=== PATIENT | male | born 1985 | race Asian ===

== ENCOUNTER 2020-01-23 18:03 | Emergency (ER) | payer MEDICAID ==
[~2020-01-23] VITALS: Ht 167.6 cm; Wt 7.7 kg
[2020-01-23] MEDS ORDERED: SULFAMETH/TRIMETH 800/160 MG TABLET PO ONE (18:45)
[2020-01-23] MEDS ORDERED: CEFTRIAXONE 1 G VIAL IM ONE (18:45)
[2020-01-23] MEDS ORDERED: SULFAMETH/TRIMETH 800/160 MG TABLET ONE (19:14)
[2020-01-23] MEDS ORDERED: CEFTRIAXONE 1 G VIAL ONE (19:14)
[2020-01-23] MEDS ORDERED: LIDOCAINE HCL 1% 20 ML VIAL ONE (19:14)
--- NOTE | 2020-01-23 19:38 | NUR ---
Patient discharged to home in stable conditon. Written and verbal after care instructions given. Patient verbalizes understanding of instructions. Walked out of ER with no distress noted.
[2020-01-23 19:39] VITALS: BP 122/85
== END 2020-01-23 19:40 | disposition home or self-care (01) ==
LOC: ER 18:03
DX: L02.01 Cutaneous abscess of face (principal)
CPT/HCPCS: 96372; 99283; J0696; J3490; A4663

== ENCOUNTER 2020-06-22 02:09 | Emergency (ER) | payer SELFPAY ==
[~2020-06-22] VITALS: Ht 167.6 cm; Wt 72.6 kg
--- NOTE | 2020-06-22 02:22 | NUR ---
PATIENT ARRIVED AT THE ER WITH C/O OF LLE PAIN/REDNESS/EDEMA SINCE YESTERDAY AM. PATIENT AAOX4. IN NO ACUTE DISTRESS. NO CARDIOPULMONARY CONCERN. NO /GI CONCERN.
--- NOTE | 2020-06-22 02:24 | NUR ---
Dr. Armenta at bedside for MSE.
[2020-06-22] MEDS ORDERED: MUPIROCIN 2% OINT 22 GM TUBE TP ONE (02:30)
[2020-06-22] MEDS ORDERED: SULFAMETH/TRIMETH 800/160 MG TABLET PO ONE (02:30)
[2020-06-22] MEDS ORDERED: SULFAMETH/TRIMETH 800/160 MG TABLET ONE (02:33)
[2020-06-22] MEDS ORDERED: MUPIROCIN 2% OINT 22 GM TUBE ONE (02:33)
--- NOTE | 2020-06-22 02:35 | NUR ---
Patient discharged to home in stable condition. Written and verbal after care instructions given. Patient verbalizes understanding of instructions. Stressed follow up or return to ER for worsening s/s. Pt ambulated out of the ER with steady gait. All belongings with pt.
[2020-06-22 02:37] VITALS: BP 145/94
== END 2020-06-22 02:35 | disposition home or self-care (01) ==
LOC: ER 02:22
DX: L03.116 Cellulitis of left lower limb (principal); L97.229 Non-pressure chronic ulcer of left calf with unspecified severity; R03.0 Elevated blood-pressure reading, without diagnosis of hypertension
CPT/HCPCS: A4663

== ENCOUNTER 2022-07-04 01:56 | Inpatient (IN) | payer SELFPAY ==
[~2022-07-04] VITALS: Ht 167.6 cm; Wt 72.6 kg
[2022-07-04] MEDS ORDERED: VANCOMYCIN IV 1,000 MG in IV DEXTROSE 5% 250 ML IV ONE (03:30)
[2022-07-04] MEDS ORDERED: CEFTRIAXONE 1 G in IV DEXTROSE 5% 50 ML IV ONE (03:30)
[2022-07-04] MEDS ORDERED: LIDOCAINE HCL 2% 20 ML VIAL IJ ONE (03:30)
[2022-07-04] MEDS ORDERED: VANCOMYCIN IV 200 ML ONE (03:39)
[2022-07-04] MEDS ORDERED: CEFTRIAXONE /D5W 50ML IVPB **ER PYXIS IV ONE (03:39)
[2022-07-04] MEDS ORDERED: LIDOCAINE HCL 2% 20 ML VIAL ONE (03:39)
[2022-07-04 03:42] LABS: HEMATOCRIT 41.3 % (36.7-47.1); MEAN CORPUSCULAR HEMOGLOBIN 30.2 uug (23.8-33.4); PLATELET COUNT (AUTO) 255 K/uL (152-348)
[2022-07-04 04:08] LABS: POTASSIUM 3.8 mmol/L (3.5-5.1)
[2022-07-04 04:14] LABS: BILIRUBIN,DIRECT 0.1 mg/dL (0.0-0.2); BILIRUBIN,TOTAL 0.5 mg/dL (0.2-1.0); TOTAL PROTEIN, SERUM 8.3 g/dL (6.4-8.2)
[2022-07-04] MEDS ORDERED: IV NS 1000 ML 1,000 ML IV PRN (06:00)
[2022-07-04] MEDS ORDERED: REMEDY ESSENTIAL ZINC PASTE 113 GM TP PRN (06:00)
[2022-07-04] MEDS ORDERED: ACETAMINOPHEN 325 MG TABLET PO PRN (06:00)
[2022-07-04] MEDS ORDERED: MORPHINE SULFATE 4 MG/1 ML DISP.SYRIN IV PRN (06:00)
[2022-07-04] MEDS ORDERED: MAGNESIUM HYDROXIDE 30 ML LIQUID UDC PO PRN (06:00)
[2022-07-04] MEDS ORDERED: ONDANSETRON 4 MG/2 ML VIAL IV PRN (06:00)
[2022-07-04] MEDS ORDERED: HYDROCODONE/APAP 5-325MG TABLET PO PRN (06:00)
[2022-07-04] MEDS ORDERED: LORAZEPAM 1 MG TABLET PO PRN (06:00)
[2022-07-04] MEDS ORDERED: PANTOPRAZOLE SODIUM 40 MG TABLET.DR PO SCH (07:00)
[2022-07-04] MEDS ORDERED: VANCOMYCIN IV 1,000 MG in IV DEXTROSE 5% 250 ML IV SCH (16:00)
[2022-07-04] MEDS ORDERED: TEMAZEPAM 15 MG CAPSULE PO PRN (21:00)
[2022-07-05] MEDS ORDERED: CEFTRIAXONE 1 G in IV DEXTROSE 5% 50 ML IV SCH (04:00)
[2022-07-05] MEDS ORDERED: PANTOPRAZOLE SODIUM 40 MG TABLET.DR PO SCH (07:45)
== END 2022-07-04 11:15 | disposition left against medical advice (07) | DRG 602 ==
LOC: ER 02:00 → TRANSITION 07:32
PROVIDERS: ADMIT Nurse Practitioner Acute Care; ATTEND Nurse Practitioner Acute Care
PROC: 0H9MXZZ Drainage of Right Foot Skin, External Approach (ICD-10-PCS; principal; 2022-07-04)
DX: L03.115 Cellulitis of right lower limb (principal); U07.1 COVID-19; L02.611 Cutaneous abscess of right foot; F15.10 Other stimulant abuse, uncomplicated; F17.210 Nicotine dependence, cigarettes, uncomplicated
CPT/HCPCS: 36415; 73630; 85025; 87040; 87070; 87077; A4663; G0378; J0696; J3370; J3490; J7040; J7050